=== PATIENT | male | born 1960 | race Caucasian/White ===

== ENCOUNTER → 2020-01-25 09:30 | Outpatient (CLI) | payer OTHER, SELFPAY ==
--- NOTE | ~2020-01-25 | CT_ITS ---
EXAMINATION: CT abdomen pelvis w con INDICATION: Abdominal pain, cirrhosis TECHNIQUE: Computed tomographic images of the abdomen and pelvis were obtained after the administrati on of 100 cc of Omnipaque 350 intravenous contrast. The dose-length product (DLP) was 555.90 mGy-cm. Automated exposure control and iterative reconstruction technique were employed. COMPARISON: None available FINDINGS: Minimal dependent atelectasis is present in the lung bases. The heart size is normal. There is a small sliding hiatal hernia. The gallbladder is surgically absent. Punctate calcifications in a n otherwise normal spleen likely represent healed granulomatous disease. There is nodularity of the l iver surface, consistent with history of cirrhosis. There is a small volume of right pelvic ascites. The pancreas and adrenal glands are normal. The kidneys are unremarkable. There is calcified atherosc lerosis of the aorta and many of the other arteries. No pathologically enlarged abdominal or pelvic l ymph nodes are identified. Colonic diverticulosis is present without evidence of diverticulitis. Ther e is no free intraperitoneal gas or evidence of bowel obstruction. There are changes of anterior and posterior fusion procedures in the lower lumbar spine. IMPRESSION: 1. Small volume of pelvic ascites. 2. Cirrhosis. Reviewed, dictated and finalized at location B.
[2020-01-25 09:53] LABS: Estimated Glomerular Filt Rate > 60
== END ==
DX: K70.31 Alcoholic cirrhosis of liver with ascites (principal)
CPT/HCPCS: 36415; 74177; Q9967